=== PATIENT | female | born 1970 | race American Indian/Alaskan Native ===

== ENCOUNTER 2018-06-03 17:18 | Emergency (ER) | payer BC ==
[~2018-06-03] VITALS: Ht 175.3 cm; Wt 122.5 kg
[~2018-06-03 17:18] MED LIST: CARI350; CYCL10 PO; IBUP600; METF500 PO; NORT25 PO; RANI150; RANI150 PO; YAZ; ZESTORETIC 20-121 EA PO
[2018-06-03] MEDS ORDERED: Metformin HCl500 MG PO (18:32)
== END 2018-06-03 18:37 | disposition home or self-care (01) ==
LOC: ER 17:18
DX: I80.02 Phlebitis and thrombophlebitis of superficial vessels of left lower extremity (principal); I10 Essential (primary) hypertension; Z79.899 Other long term (current) drug therapy; Z79.84 Long term (current) use of oral hypoglycemic drugs; Z87.891 Personal history of nicotine dependence
CPT/HCPCS: 93971; 99284-25

== ENCOUNTER → 2019-06-01 | Outpatient (CLI) | payer BC ==
[~2019-06-01] MED LIST changes: +Metformin HCl500 MG PO
== END | disposition home or self-care (01) ==
LOC: LAB 17:30 → LAB SHORT 17:30 → LAB FUT 04-22 08:20 → EDSTATUS 04-22 08:20
DX: K21.9 Gastro-esophageal reflux disease without esophagitis (principal)
CPT/HCPCS: 87338

== ENCOUNTER 2021-05-19 16:04 | Emergency (ER) | payer BC ==
[~2021-05-19] VITALS: Ht 177.8 cm; Wt 129.3 kg
[2021-05-19] MEDS ORDERED: DECADRON6 MG PO (17:02)
== END 2021-05-19 19:00 | disposition home or self-care (01) ==
LOC: ER 16:04
DX: U07.1 COVID-19 (principal); I10 Essential (primary) hypertension; Z87.891 Personal history of nicotine dependence
CPT/HCPCS: 71045; 99284-25; A9270

== ENCOUNTER → 2021-07-18 | Outpatient (CLI) | payer BC ==
[~2021-07-18] MED LIST changes: +DECADRON6 MG PO
== END | disposition home or self-care (01) ==
LOC: LAB SHORT 11:22 → LAB 11:22
DX: R30.0 Dysuria (principal)
CPT/HCPCS: 87086

== ENCOUNTER → 2022-02-09 | Outpatient (CLI) | payer BC | END | disposition home or self-care (01) | LOC: LAB 14:03 → LAB SHORT 14:03 | DX: R30.9 Painful micturition, unspecified (principal) | CPT/HCPCS: 87077; 87086; 87186 ==

== ENCOUNTER → 2022-03-02 | Outpatient (CLI) | payer BC | END | disposition home or self-care (01) | LOC: LAB SHORT 14:50 | DX: N39.0 Urinary tract infection, site not specified (principal) | CPT/HCPCS: 87086 ==

== ENCOUNTER → 2022-07-16 | Outpatient (CLI) | payer BC | END | disposition home or self-care (01) | LOC: LAB SHORT 17:35 → LAB 17:35 | DX: R30.0 Dysuria (principal) | CPT/HCPCS: 87077; 87086; 87186 ==